=== PATIENT | female | born 1965 | race Caucasian/White ===

== ENCOUNTER → 2019-12-25 | Outpatient (CLI) | payer OTHER | END | disposition home or self-care (01) | LOC: LAB 13:30 | PROVIDERS: ATTEND Surgery | DX: Z01.812 Encounter for preprocedural laboratory examination (principal); Z20.828 Contact with and (suspected) exposure to other viral communicable diseases; K80.20 Calculus of gallbladder without cholecystitis without obstruction | CPT/HCPCS: U0003-CS ==

== ENCOUNTER 2019-12-29 05:59 | Day surgery (SDC) | payer OTHER ==
[2019-12-29] MEDS ORDERED: DEXAMETHASONE SOD PHOS 4 MG/ML VIAL ONE (06:49)
[2019-12-29] MEDS ORDERED: ROCURONIUM 50 MG/5 ML VIAL. ONE (06:49)
[2019-12-29] MEDS ORDERED: LIDOCAINE 2% PF 5 ML VIAL. ONE (06:49)
[2019-12-29] MEDS ORDERED: PROPOFOL 10 MG/ML (20ML) VIAL. IV ONE (06:49)
[2019-12-29] MEDS ORDERED: SEVOFLURANE 31 TO 60 MINUTES. IH ONE ×2 (06:49→08:12)
[2019-12-29] MEDS ORDERED: KETOROLAC 30 MG/ML VIAL. ONE (06:49)
[2019-12-29] MEDS ORDERED: ONDANSETRON PF 4 MG/2 ML VIAL. ONE (06:49)
[2019-12-29] MEDS ORDERED: MIDAZOLAM HCL/PF 2 MG/2 ML VIAL. ONE (06:55)
[2019-12-29] MEDS ORDERED: fentaNYL PF VIAL 100 MCG/2 ML VIAL ONE ×2 (06:55→07:54)
[2019-12-29] MEDS ORDERED: IOHEXOL 300 MG/ML 50 ML VIAL. ONE (06:56)
[2019-12-29] MEDS ORDERED: SURGICEL HEMOSTAT 4X8 EACH. ONE (06:56)
[2019-12-29] MEDS ORDERED: BUPIVACAINE-EPI 0.5%-1:200000 MPF 30 ML VIAL. ONE (06:56)
[2019-12-29] MEDS ORDERED: ONDANSETRON PF 4 MG/2 ML VIAL. IV PRN (07:00)
[2019-12-29] MEDS ORDERED: ACETAMINOPHEN 500 MG TABLET PO ONE (07:00)
[2019-12-29] MEDS ORDERED: HYDROmorphone 2 MG/ML VIAL IV PRN (07:00)
[2019-12-29] MEDS ORDERED: LIDOCAINE 1% PF 2 ML VIAL. ID PRN (07:00)
[2019-12-29] MEDS ORDERED: IV RINGERS,LACTATED 1000ML 1,000 ML IV SCH (07:00)
[2019-12-29] MEDS ORDERED: fentaNYL PF VIAL 100 MCG/2 ML VIAL IV PRN (07:00)
[2019-12-29] MEDS ORDERED: MORPHINE SULFATE 2 MG/ML VIAL. IV PRN (07:00)
[2019-12-29] MEDS ORDERED: PROCHLORPERAZINE 10 MG/2 ML VIAL. IV PRN (07:00)
[2019-12-29] MEDS ORDERED: NEOSTIGMINE METHYLSULFATE 5 MG/5 ML SYRINGE. ONE (07:54)
[2019-12-29] MEDS ORDERED: GLYCOPYRROLATE 1 MG/5 ML VIAL. ONE (07:54)
--- NOTE | 2019-12-29 08:05 | PDOC4 ---
Operative Note Operative Note Date: 12/29/2019 at 0808 Preoperative diagnosis: Chronic cholecystitis cholelithiasis Postoperative diagnosis: Same Procedure: Laparoscopic cholecystectomy Surgeon: Hany Specimen: Gallbladder Dictation: Patient is a 54-year-old female whose had right upper quadrant abdominal pain ultrasound showing gallstones. Procedure laparoscopic cholecystectomy was explained to the patient detail was benefits were also discussed including bleeding infection injury to intra-abdominal contents possibly necessitating further or open operations alternatives to this procedure also discussed with the patient who seemed to understand and gave both verbal and written consent to have the procedure performed. Patient was taken to the operating room placed in the supine position general anesthesia was initiated once patient was sleeping intubated her abdomen was prepped and draped usual sterile fashion using ChloraPrep. An area just below the umbilicus was injected with quarter percent Marcaine with epinephrine incision was made 11 blade scalpel and a varies needle was placed within the abdomen creating pneumoperitoneum once this was complete 11 mm port was placed and a 5 mm camera was placed within the abdomen which was inspected no other red maladies were noted. A 5 mm port was placed in the epigastrium a 5 mm port was placed in the right midabdomen and a 5 mm port was placed in the right lateral abdomen. The dome of the gallbladder is grasped retracted cephalad the infundibulum the gallbladder is grasped retracted laterally exposing the triangle of adherent tissues the triangle were taken down exposing the cystic duct and cystic artery both were doubly clipped and transected the gallbladder was taken off the liver with hook electrocautery placed in Endo Catch bag and removed from the umbilicus the right upper quadrant was irrigated and suctioned dry hemostasis deemed appropriate and the pneumoperitoneum was reduced all ports were removed the fascial defect at the umbilicus was closed with a [id number] 0 Vicryl suture and the skin was reapproximated all port sites for subcuticular Monocryl Mastisol Steri-Strips and island dressings were applied. Patient was awakened and extubated in the operating room taken recovery in stable condition all sponge instrument needle counts listed as correct estimated blood loss 5 mL DIYA YU MD Dec 29, 2019 08:05
--- NOTE | 2019-12-29 08:07 | DISCH ---
DISCHARGE INSTRUCTIONS Condition on Discharge Condition on Discharge: Stable Activity After Discharge Activity Instructions for Disc: Avoid exertion Other activity instructions: No lifting more than 20 pounds for 2 weeks Diet after Discharge Diet after Discharge: Low Fat Wound Incision Care Other wound/incision instructi: May shower in 24 hours Contacting the after DC Call your doctor for: If your condition worsens Follow-Up Follow up with: Dr. Yu in 2 weeks DIYA YU MD Dec 29, 2019 08:07
[2019-12-29] MEDS: fentaNYL PF VIAL 100 MCG/2 ML VIAL IV PRN ×2 (08:30→08:40)
[2019-12-29] MEDS ORDERED: oxyCODONE/APAP 5/325 1 TAB TABLET PO ONE (08:45)
[2019-12-29] MEDS ORDERED: OXYC-325 PO (08:50)
[2019-12-29 09:10] VITALS: BP 123/53
--- NOTE | 2020-01-02 09:08 | PATHOLOGY ---
[facility] Accession Number: [id number] . 01 Material submitted: . gallbladder - GALLBLADDER AND CONTENTS . 01 Clinical history: . SYMPTOMATIC CHOLELITHIASIS . 02 Diagnosis: Gallbladder, cholecystectomy: - Cholelithiasis. - Cholesterolosis, focal. - Chronic cholecystitis. - Reactive changes of gallbladder neck lymph node. LBQ 01/02/2020 0820 Local . 02 Comment: There is no evidence of malignancy. (JPM/db; 01/01/2020) . 02 Electronically signed: . Tavo Montgomery MD, Pathologist NPI- [id number] . 01 Gross description: . The specimen is received in formalin labeled "Hurley, Gayatri, gallbladder and contents" and consists of intact green gallbladder measuring 8.6 x 3.1 x 2.9 cm. The margin is inked black. Opening reveals a lumen filled with green bile and multiple fragmented yellow-green calculi measuring 4.3 x 3.8 cm in aggregate. The mucosa is green with scattered yellow stippled and an average wall thickness of 0.1 cm. No masses are identified. Adjacent the gallbladder neck is a lymph node. [employer] sections are submitted in A1. (SDY; 12/30/2019) SYU/SYU 12/30/2019 1120 Local . 02 Pathologist provided ICD-10: K80.10 . 02 CPT . 981570 Specimen Comment: A courtesy copy of this report has been sent to [phone], [phone] Specimen Comment: [id number] Specimen Comment: Report sent to / DR GUTIÉRREZ Performed at: [address], [place], [place] [id number] MD Jean Robb MD Phone: [phone] Performed at: 02 [facility] [address] [place] [id number] MD Tavo Montgomery MD Phone: [phone]
== END 2019-12-29 09:43 | disposition home or self-care (01) ==
LOC: SURG 05:59 → EDUNIT# 09:30 → SURG 09:43
PROVIDERS: ATTEND Surgery
DX: K80.10 Calculus of gallbladder with chronic cholecystitis without obstruction (principal); Z79.899 Other long term (current) drug therapy
CPT/HCPCS: 47562; 81025; 88304; A7015; J0690; J1100; J1885; J2250; J2405; J2704; J2710; J3010; J3490; J7030; Q9967